=== PATIENT | male | born 1995 | race Hispanic/Latino ===

== ENCOUNTER 2018-07-10 19:03 | Emergency (ER) | payer SELFPAY ==
[2018-07-10 19:23] VITALS: TEMP 97.2
[2018-07-10] MEDS ORDERED: SODIUM CHLORIDE 0.9% 1000ML 1,000 ML IVS ONE (19:25)
[2018-07-10] MEDS ORDERED: ALPRAZolam 0.25 MG TAB PO ONE (19:25)
--- NOTE | 2018-07-10 19:31 | ED.PDOC ---
History of Present Illness - General Chief Complaint: Behavioral / Psych Stated Complaint: SOB, chest discomfort, anxiety Time Seen by Provider: 07/10/18 19:04 Source: patient Exam Limitations: no limitations - History of Present Illness Initial Comments: patient comes in today with sudden onset of shortness of breath and tachycardia. Patient states he had been drinking alcohol earlier in the day and was smoking a cigar. He has smoked cigars in the past without any history of problems. Today however, he became very anxious and felt his heart was racing. He felt like he could not catch his breath and started feeling severe anxiety. Patient has never had anxiety atacks and has no known medical history. Patient states he was a normal and with no history of any type of cardiac anomalies in childhood. Patient does not use any drugs with the exception of the alcohol and cigars. He denies any use of other drugs or supplements. He has NKDA. He has recently been in his normal usual health without any history of fever, chills, cough or cold symptoms. He's not had any recent severe exertion or activity change. Timing/Duration: 1/2 hour Severity: severe Improving Factors: nothing Worsening Factors: nothing Associated Symptoms: chest pain, shortness of breath, other - anxiety Allergies/Adverse Reactions: Allergies NO KNOWN ALLERGY Allergy (Verified 07/10/18 19:23) Home Medications: Ambulatory Orders Potassium Chloride [K-Tab] 20 meq PO DAILY #7 tab 07/10/18 Review of Systems - Review of Systems Constitutional: States: no symptoms reported. Denies: chills, fever EENTM: States: no symptoms reported. Denies: eye pain, ear pain, nose pain Respiratory: States: short of breath. Denies: cough, wheezing Cardiology: States: see HPI, chest pain. Denies: edema, palpitations, syncope Gastrointestinal/Abdominal: States: no symptoms reported. Denies: abdominal pain, diarrhea, nausea, vomiting Genitourinary: States: no symptoms reported Musculoskeletal: States: no symptoms reported Skin: States: no symptoms reported Past Medical History (General) - Patient Medical History Hx Seizures: No Hx Stroke: No Hx Dementia: No Hx Asthma: No Hx of COPD: No Hx Cardiac Disorders: No Hx Congestive Heart Failure: No Hx Pacemaker: No Hx Hypertension: No Hx Thyroid Disease: No Hx Diabetes: No Hx Gastroesophageal Reflux: No Hx Renal Disease: No Hx Cancer: No Hx of HIV: No Hx Hepatitis C: No Hx MRSA: No Surgical History: no surgical history - Vaccination History Hx Tetanus, Diphtheria Vaccination: Yes Hx Influenza Vaccination: Yes - Social History Hx Alcohol Use: Yes Hx Substance Use: No Family Medical History - Family History Father Living Status: Still Living Hx Family Diabetes: Yes Physical Exam - Physical Exam General Appearance: Anxious Eye Exam: bilateral normal Ears, Nose, Throat: hearing grossly normal, normal ENT inspection, normal pharynx Neck: non-tender, full range of motion, supple, normal inspection Respiratory: chest non-tender, lungs clear, normal breath sounds, no respiratory distress Cardiovascular/Chest: regular rate, rhythm, no JVD, no murmur, tachycardia Peripheral Pulses: radial,right: 2+, radial,left: 2+ Gastrointestinal/Abdominal: normal bowel sounds, non tender, soft Neurologic: alert, oriented x 3 Progress - Progress Progress: 07/10/18 21:01 patient feels much better and HR has returned to normal. discussed stopping nicotine use and ETOH. increase fluids and K rich foods. Follow up with PCP in 4-5 days to recheck K. Return to ER for tachycardia, chest pain, shortness of breath. - Results/Orders Results/Orders: 07/10/18 19:27 URINE DRUG SCREEN, 7 ASSAY Stat 07/10/18 19:30 EKG STAT 07/10/18 20:59 EKG Assessment ONCE 07/10/18 21:00 EKG STAT Laboratory Results WBC 8.5 K/mm3 (4.8-10.8) 07/10/18 19:40 RBC 4.89 M/mm3 (4.70-6.10) 07/10/18 19:40 Hgb 15.3 gm/dL (14.0-18.0) 07/10/18 19:40 Hct 45.7 % (42.0-52.0) 07/10/18 19:40 MCV 93.6 fl (80.0-94.0) 07/10/18 19:40 MCH 31.3 pg (27.0-31.0) H 07/10/18 19:40 MCHC 33.4 g/dL (33.0-37.0) 07/10/18 19:40 RDW 13.6 % (11.5-14.5) 12/08/18 19:40 Plt Count 236 K/mm3 (130-400) 07/10/18 19:40 MPV 8.5 fl (7.40-10.4) 07/10/18 19:40 Absolute Neuts (auto) 5.10 K/uL (1.8-6.8) 07/10/18 19:40 Absolute Lymphs (auto) 2.70 K/uL (1.0-3.4) 07/10/18 19:40 Absolute Monos (auto) 0.50 K/uL (0.2-0.8) 07/10/18 19:40 Absolute Eos (auto) 0.10 K/uL (0.0-0.4) 07/10/18 19:40 Absolute Basos (auto) 0.10 K/uL (0.0-0.1) 07/10/18 19:40 Neutrophils % 59.9 % (42.0-78.0) 07/10/18 19:40 Lymphocytes % 31.3 % (20.0-50.0) 07/10/18 19:40 Monocytes % 6.1 % (2.0-9.0) 07/10/18 19:40 Eosinophils % 1.5 % (1.0-5.0) 07/10/18 19:40 Basophils % 1.2 % (0.0-2.0) 07/10/18 19:40 PT 10.3 SECONDS (9.0-10.9) 07/10/18 19:40 INR 1.03 (0.9-1.15) 07/10/18 19:40 PTT (SP) 24.2 SECONDS (21.8-31.6) 07/10/18 19:40 Sodium 137 mmol/L (135-145) 07/10/18 19:40 Potassium 2.8 mmol/L (3.6-5.0) L 07/10/18 19:40 Chloride 104 mmol/L (101-111) 07/10/18 19:40 Carbon Dioxide 21 mmol/L (21-31) 07/10/18 19:40 Anion Gap 14.8 (12-18) 07/10/18 19:40 BUN 19 mg/dL (7-18) H 07/10/18 19:40 Creatinine 1.01 mg/dL (0.6-1.3) 07/10/18 19:40 BUN/Creatinine Ratio 18.8 (10-20) 07/10/18 19:40 Random Glucose 168 mg/dL (70-105) H 07/10/18 19:40 Serum Osmolality 279.9 mOsm/L (275-295) 07/10/18 19:40 Calcium 9.3 mg/dL (8.4-10.2) 07/10/18 19:40 Magnesium 1.8 mg/dL (1.8-2.5) 07/10/18 19:40 Creatine Kinase 109 IU/L (38-174) 07/10/18 19:40 CK-MB (CK-2) 2.1 ng/mL (0.0-4.4) 07/10/18 19:40 CK-MB (CK-2) % Not Reportable 07/10/18 19:40 Troponin I < 0.02 ng/mL (0.01-0.05) 07/10/18 19:40 repeat EKG NSR with HR of 76 with incomplete RBB - EKG/XRAY/CT EKG: Sinus, Tachy Comments: 130 with ?biatrial enlargement Departure - Departure Clinical Impression: Sinus tachycardia, Hypokalemia Disposition: Discharge to Home or Self Care Condition: Good Departure Forms: ED Discharge - Pt. Copy, Patient Portal Self Enrollment Instructions: DI for Psychosis Diet: other - Increase fluids and K rich foods Prescriptions: Potassium Chloride [K-Tab] 20 meq PO DAILY #7 tab Home Medications: Ambulatory Orders Potassium Chloride [K-Tab] 20 meq PO DAILY #7 tab 07/10/18 Additional Instructions: increase K rich foods, increase fluids, do not smoke or use ETOH. Follow up with PCP in 4-5 days to recheck potassium level and repeat EKG. Return to ER for return of tachycardia, chest pain, or shortness of breath.
--- NOTE | 2018-07-10 19:43 | RAD ---
EXAM DESCRIPTION: AP view of the chest CLINICAL HISTORY:22 years Male, shortness of breath, sinus tach Comparison: None FINDINGS: No focal lung consolidation. No pleural effusion. No pneumothorax. Cardiac and mediastinal silhouette is unremarkable. No acute osseous abnormality. Soft tissues are unremarkable. IMPRESSION: No acute findings. No focal lung consolidation. Electronically signed by: Dread Mohr DO 07/10/2018 7:42 PM [facility]
[2018-07-10] MEDS ORDERED: ALPRAZolam 0.5 MG TAB ONE (19:45)
[2018-07-10] MEDS: ALPRAZolam 0.25 MG TAB PO ONE ×2 (19:50→19:51)
[2018-07-10] MEDS: LABETALOL INJ 5 MG/ML VIAL IV ONE ×2 (19:50→20:00)
[2018-07-10] MEDS ORDERED: POTASSIUM CHLORIDE 20 MEQ TAB PO ONE (20:59)
[2018-07-10 21:36] VITALS: BP 118/54; O2SAT 98
== END 2018-07-10 21:36 | disposition home or self-care (01) ==
LOC: ER 19:03
DX: R00.0 Tachycardia, unspecified (principal); E87.6 Hypokalemia; I45.10 Unspecified right bundle-branch block; F10.99 Alcohol use, unspecified with unspecified alcohol-induced disorder; Z72.0 Tobacco use
CPT/HCPCS: 36415; 71045; 80048; 82550; 82553; 84484; 85025; 85610; 85730; 93005; J7030

== ENCOUNTER 2019-08-14 15:44 | Emergency (ER) | payer SELFPAY ==
--- NOTE | 2019-08-14 16:27 | RAD ---
EXAM DESCRIPTION: Tibia/Fibula,Right CLINICAL HISTORY: 23 years Male PAIN COMPARISON: None. TECHNIQUE: RIGHT tibia fibula, two views FINDINGS: No acute fractures or dislocations are identified. No osseous destructive lesions. IMPRESSION: No acute fracture is identified. Electronically signed by: Erlinda Gregorio MD 08/14/2019 4:26 PM [employer]
--- NOTE | 2019-08-14 16:46 | ED.PDOC ---
History of Present Illness - General Chief Complaint: Lower Extremity Injury Stated Complaint: right lower leg pain Time Seen by Provider: 08/14/19 15:54 Source: patient Exam Limitations: no limitations - History of Present Illness Initial Comments: the patient is a 23-year-old male presenting to emergency room secondary to pain to the lateral distal third lower leg on the right after having sustained a mild injury while playing sports. No pain over the ankle proper or the knee. No obvious deformity. He is neurovascularly intact. No other injuries. No contusion. No crepitus.no obvious joint instability at the knee or ankle itself. There is some tenderness to palpation over the lateral distal third area over the fibula. Timing/Duration: momentarily Severity: moderate Improving Factors: immobilization Worsening Factors: movement Associated Symptoms: denies symptoms Allergies/Adverse Reactions: Allergies NO KNOWN ALLERGY Allergy (Verified 07/10/18 19:23) Home Medications: Ambulatory Orders NK 08/14/19 Review of Systems - Review of Systems Constitutional: States: no symptoms reported EENTM: States: no symptoms reported Respiratory: States: no symptoms reported Cardiology: States: no symptoms reported Gastrointestinal/Abdominal: States: no symptoms reported Genitourinary: States: no symptoms reported Musculoskeletal: States: see HPI Skin: States: no symptoms reported Neurological: States: no symptoms reported Endocrine: States: no symptoms reported All other Systems: No Change from Baseline Past Medical History (General) - Patient Medical History Hx Seizures: No Hx Stroke: No Hx Dementia: No Hx Asthma: No Hx of COPD: No Hx Cardiac Disorders: No Hx Congestive Heart Failure: No Hx Pacemaker: No Hx Hypertension: No Hx Thyroid Disease: No Hx Diabetes: No Hx Gastroesophageal Reflux: No Hx Renal Disease: No Hx Cancer: No Hx of HIV: No Hx Hepatitis C: No Hx MRSA: No Surgical History: no surgical history - Vaccination History Hx Tetanus, Diphtheria Vaccination: Yes Hx Influenza Vaccination: Yes - Social History Hx Tobacco Use: Yes Hx Alcohol Use: Yes Hx Substance Use: No Family Medical History - Family History Father Living Status: Still Living Hx Family Diabetes: Yes Physical Exam - Physical Exam General Appearance: Alert, Comfortable, No apparent distress Eye Exam: bilateral normal Ears, Nose, Throat: hearing grossly normal Neck: full range of motion Respiratory: no respiratory distress, no accessory muscle use Cardiovascular/Chest: normal peripheral pulses, no edema Peripheral Pulses: dorsalis pedis,right: 2+, dorsalis pedis,left: 2+, posterior tibialis,right: 2+, posterior tibialis,left: 2+ Rectal Exam: deferred Extremity: normal range of motion, no pedal edema, normal capillary refill, other - see history of present illness. 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 He is neurovascularly intact. He needs to avoid strenuous activity with the lower extremity for the next 2-3 weeks. He can take 2 Aleve twice daily to help reduce inflammation. Range of motion exercises are encouraged. Ambulate carefully to prevent reinjury. x-ray shows no evidence of any fracture or significant dislocation. Certainly small hairline fractures can be missed on x-ray initially. ER warnings were given for any worsening. keep routine follow-up with primary care doctor otherwise. dav walker [phone] - Results/Orders Results/Orders: x-ray of the right tib-fib shows no evidence of any obvious fracture or dislocation. Departure - Departure Clinical Impression: High ankle sprain of right lower extremity Qualifiers: Encounter type: initial encounter Qualified Code(s): S93.431A - Sprain of tibiofibular ligament of right ankle, initial encounter Disposition: Discharge to Home or Self Care Condition: Fair Departure Forms: ED Discharge - Pt. Copy, Patient Portal Self Enrollment Instructions: Ankle Sprain (DC) Diet: regular diet Activity: increase activity as tolerated Referrals: MANUELA COLIN [Primary Care Provider] - 1-2 Weeks Home Medications: Ambulatory Orders NK 08/14/19 Additional Instructions: the patient's 23-year-old male presenting to the emergency room secondary to that appears to be a right high ankle sprain more significant on the fibular side. He is neurovascularly intact. He needs to avoid strenuous activity with the lower extremity for the next 2-3 weeks. He can take 2 Aleve twice daily to help reduce inflammation. Range of motion exercises are encouraged. Ambulate carefully to prevent reinjury. x-ray shows no evidence of any fracture or significant dislocation. Certainly small hairline fractures can be missed on x-ray initially. ER warnings were given for any worsening. keep routine follow-up with primary care doctor otherwise.
[2019-08-14 16:59] VITALS: BP 116/69; TEMP 96.8; O2SAT 99
== END 2019-08-14 16:55 | disposition home or self-care (01) ==
LOC: ER 15:44
DX: S93.431A Sprain of tibiofibular ligament of right ankle, initial encounter (principal); Z87.891 Personal history of nicotine dependence; X50.9XXA Other and unspecified overexertion or strenuous movements or postures, initial encounter; Y93.61 Activity, american tackle football; Y92.9 Unspecified place or not applicable